=== PATIENT | male | born 1980 | race African-American/Black ===

== ENCOUNTER 2018-10-25 20:03 | Emergency (ER) | payer OTHER ==
[~2018-10-25] VITALS: Ht 170.2 cm; Wt 95.3 kg
[2018-10-25] MEDS ORDERED: PREDNISONE 10 M10 MG PO (20:53)
[2018-10-25] MEDS ORDERED: PROTONIX40 M1 PO (20:53)
[2018-10-25] MEDS ORDERED: VENTOLIN HFA 1818 GM INH ×2 (20:54→21:10)
[2018-10-25] MEDS ORDERED: BREO ELLIPTA 21 EACH INH (20:54)
[2018-10-25] MEDS ORDERED: ALBUTEROL2.5 MG/31 INH (21:10)
[2018-10-25] MEDS ORDERED: NEBULIZER MISCELL (21:10)
[2018-10-25] MEDS ORDERED: MEDROLDOSEPACK PO (21:10)
[2018-10-25] MEDS ORDERED: DOXYCYCLINE 10100 MG PO (21:40)
[2018-10-25] MEDS ORDERED: PROMETH-CODEIN 65 ML PO (22:19)
[2018-10-25 22:26] VITALS: BP 150/89
== END 2018-10-25 22:20 | disposition home or self-care (01) ==
LOC: ER 20:03
DX: J18.9 Pneumonia, unspecified organism (principal); D86.9 Sarcoidosis, unspecified; Z88.8 Allergy status to other drugs, medicaments and biological substances

== ENCOUNTER 2018-12-24 14:55 | Inpatient (IN) | payer OTHER ==
[~2018-12-24] VITALS: Ht 170.2 cm; Wt 102.1 kg
--- NOTE | ~2018-12-24 | HC ---
[facility] [place] [address] CONSULTATION Name: KING YOUNG Room #: 449-I [facility] IN M.R.#: [id number] Admission: 12/24/18 ������������������ Attend Phys: Marylin Massey Discharge: 12/27/18 ������������������ Date of : 80 Report #: [id number] THIS REPORT FOR: //name// CC: FAM physician/PCP Marylin Massey DATE OF SERVICE: 12/25/2018 REFERRING PHYSICIAN: Marylin Massey MD. REASON FOR REFERRAL: Dyspnea. HISTORY OF PRESENT ILLNESS: The patient is a 38-year-old male who presents to the ED with progressive cough, weakness. A pulmonary consultation was requested. The patient was diagnosed with sarcoidosis in 01/2018. He has been seen at [facility]. Since then, he has been placed on steroids. He states that he was treated for pneumonia about two months ago. He was in his usual state of health until four days prior to presentation when he started to feel weak, increased cough productive of purulent sputum. Temperature on admission was 103.3 degrees Fahrenheit. PAST MEDICAL HISTORY: As mentioned above, sarcoidosis. According to the patient who had lung biopsy via bronchoscopy in 01/2018. He has been on prednisone since then. ALLERGIES: TO NAPROXEN, REACTIONS UNSPECIFIED. HOME MEDICATIONS: List reviewed in the MAR. FAMILY HISTORY: Noncontributory. SOCIAL HISTORY: He denies any tobacco use. He drinks socially. REVIEW OF SYSTEMS: As mentioned above, otherwise 10-point system review negative. PHYSICAL EXAMINATION: GENERAL: He is awake, alert, in mild distress. Appears moderately dyspneic. VITAL SIGNS: Temperature is 36.6 degrees Celsius, pulse is 100, respiratory rate is 20, blood pressure 130/73 mmHg, saturation 96% on supplemental O2. HEENT: Normocephalic, atraumatic. NECK: Supple, without lymphadenopathy or thyromegaly. CHEST: Breath sounds are moderate with mild bilateral crackles and wheezes. [facility] [address] [place] [address] CONSULTATION Name: KING YOUNG Room #: [address] [place] [address] IN ..#: [id number] Admission: 12/24/18 ������������������ Attend Phys: Marylin Massey Discharge: 12/27/18 ������������������ Date of : 80 Report #: [id number] CARDIOVASCULAR: Normal S1, S2. No murmurs or gallop. There is no JVD. There is no carotid bruit. Pulses are 2+/4+ bilaterally. ABDOMEN: Soft, nontender, no organomegaly or masses felt. GENITOURINARY: Deferred. RECTAL: Deferred. EXTREMITIES: No edema, cyanosis or clubbing. LABORATORY DATA: CT chest angiogram and chest x-ray reviewed showing bilateral patchy infiltrates along with mediastinal adenopathy. WBC 14,000, hemoglobin is 15.5. Electrolytes are unremarkable. MARY level was unremarkable. IMPRESSION: 1. Febrile illness, bilateral infiltrates, presumed pneumonia, though cannot rule out an exacerbation of sarcoidosis. 2. Sarcoidosis, pulmonary involvement, diagnosed in 01/2018. According to the patient, he has undergone bronchoscopy, biopsy at [facility]. He has been on prednisone since then. RECOMMENDATION: Agree with broad-spectrum antibiotics. We will also start to increase corticosteroids for his presumed exacerbation of sarcoidosis. DVT and GI prophylaxis recommended. Follow up cultures. Thank you for this consultation. ��������������������������������������������� ���������������������������������������� By: ��������������������������������������������� 1111 09 Boby Quintanilla MD /nt
[~2018-12-24 14:55] MED LIST: ALBUTEROL2.5 MG/31 INH; BREO ELLIPTA 21 EACH INH; DOXYCYCLINE 10100 MG PO; MEDROLDOSEPACK PO; NEBULIZER MISCELL; PREDNISONE 10 M10 MG PO; PROMETH-CODEIN 65 ML PO; PROTONIX40 M1 PO; VENTOLIN HFA 1818 GM INH
[2018-12-24 14:57] VITALS: BP 141/96
[2018-12-24 16:25] LABS: ABSOLUTE NEUTROPHILS 11.5 thou/uL (1.4-8.2); BASOPHILS 0.3 % (0.0-2.0); EOSINOPHILS 0.3 % (0.0-3.0); HEMATOCRIT 44.5 % (42.0-52.0); HEMOGLOBIN 15.5 gm/dL (14.0-18.0); LYMPHOCYTES 6.5 % (24.0-44.0); MCH 29.6 pg (26.0-34.0); MCHC 34.7 g/dL (28.0-37.0); MCV 85.3 fL (80.0-100.0); MONOCYTES 10.9 % (1.0-8.0); PLATELET COUNT 324 thou/uL (150-400); RBC 5.23 mil/uL (4.50-6.00); RDW 14.1 % (10.5-14.5)
[2018-12-24 17:04] LABS: ANION GAP 15 mmol/L (7-16); BUN 12 mg/dL (7-18); CALCIUM 10.2 mg/dL (8.5-10.1); CHLORIDE 95 mmol/L (98-107); CO2 23 mmol/L (21-32); CREATININE 1.1 mg/dL (0.7-1.3); GLUCOSE 114 mg/dL (74-106); SODIUM 133 mmol/L (136-145)
[2018-12-24 17:14] LABS: ALBUMIN 3.8 g/dL (3.4-5.0); SGOT 32 U/L (15-37); SGPT 37 U/L (30-65); TOTAL BILIRUBIN 1.7 mg/dL (<0.1-1.0); TOTAL PROTEIN 9.8 g/dL (6.4-8.2); TROPONIN-I <0.06 ng/mL (<0.06)
[2018-12-24 17:43] VITALS: BP 133/81
--- NOTE | 2018-12-24 17:45 | NUR ---
HOSPITALIST AT BEDSIDE
[2018-12-24 17:57] VITALS: BP 142/80
[2018-12-24 20:45] VITALS: BP 135/72
--- NOTE | 2018-12-25 06:34 | NUR ---
Received pt from ED at 2245. Pt resting in bed. AOX4. VSS temperate 98.3 now. Still having non productive cough. Cough causing pain gave hydrocodone onetime. IV Right forearm with NS @100. Pt is on droplet precaution. Flu swabs negative. Skin intact. Called in consults. No identified needs at the moment. Will continue to monitor.
[2018-12-25 08:00] VITALS: BP 145/76
--- NOTE | 2018-12-25 08:55 | EKG ---
[address] [facility] [place] [address] ELECTROCARDIOGRAM REPORT Name: KING YOUNG Room #: 464-P ADM IN M.R.#: [id number] ������������������ Admission: 12/24/18 ������������������ Attend Phys: Marylin Massey Discharge: ������������������ Date of : 80 Report #: [id number] ����������������������������������������������������������������� [id number] THIS REPORT FOR: //name// [facility] ED Test Date: 2018-12-24 Test Time: 15:32:05 Pat Name: KING HECTOR Department: Room: 464 Gender: M Professional Builder: WAYLON : 1980 Requested By: Bryn Oliver Order Number: [id number] MD: Frederick York Measurements Intervals Termo Rate: 131 P: 50 NC: 175 QRS: 60 QRSD: 76 T: 12 QT: 274 QTc: 405 Interpretive Statements Sinus tachycardia Poor R wave progression Baseline wander in lead(s) V2 No previous ECG available for comparison Electronically Signed On 12-25-2018 8:55:40 CDT by Frederick York [email or web address] ��������������������������������������������� <ELECTRONICALLY SIGNED> ���������������������������������������� By: Frederick York MD, [facility] ��������������������������������������������� 12/25/18 0855 1532 31 Frederick York MD, FACC /EPI
[2018-12-25 15:00] VITALS: BP 130/73
[2018-12-25 16:53] LABS: URINE BILIRUBIN NEGATIVE (Negative); URINE BLOOD NEGATIVE (Negative); URINE CLARITY CLEAR; URINE COLOR YELLOW; URINE GLUCOSE-RANDOM* TRACE (Negative); URINE KETONES NEGATIVE (Negative); URINE LEUKOCYTES-REFLEX NEGATIVE (Negative); URINE NITRITE-REFLEX NEGATIVE (Negative); URINE PROTEIN (DIPSTICK) 1+ (Negative)
[2018-12-25 17:06] LABS: BACTERIA-REFLEX None Seen /HPF (None Seen); CASTS None Seen /LPF (None Seen); CELLULAR CASTS 0-3 Few /LPF (None Seen); CRYSTALS None Seen /LPF (None Seen); SQUAMOUS 0-3 Few /LPF (0-3); URINE RBC None Seen /HPF (0-2); URINE WBC-REFLEX 0-5 Rare /HPF (0-5)
--- NOTE | 2018-12-25 17:06 | NUR ---
PT ADMITTED RELATED TO CAP, SARCOID. CM REVIEWEDCHART AND SPOKE WITH CARE TEA. CM MET WITH PT AT BEDSIDE THIS DAY. PT IS A&O X4. CM ROLE INTRODUCED. PT INDICATED HE LIVES IN A HOUSE WITH SPOUSE 5 STEPS TO ENTER AND 5 STEPS INSIDE. HE HAD BEEN INDEPENDENT WITH GAIT AND ADLS ED TRANSPORTER NO DME. PLANS TO RETURN HOME PNCE STABLE. CM TO FOLLOW.
--- NOTE | 2018-12-25 19:05 | NUR ---
PT STABLE THROUGHOUT SHIFT. PT HAD C/O PAIN WHICH WERE ADDRESSED WITH MEDS. PT ALSO C/O COUGH, ALSO TREATED WITH MEDICATION. PT WAS TRANSFERRED TO [facility] FOR NEGATIVE AIR PRESSURE AND PLACED IN AIRBORNE PRECAUTION ISO. PT RESTING COMFORTABLY.
--- NOTE | 2018-12-25 19:23 | NUR ---
PT TB SKIN TEST PERFORMED- LEFT FOREARM, CIRCLED IN BLACK MARKER.
[2018-12-25 19:24] VITALS: BP 141/68
[2018-12-26 00:05] LABS: IgA 165 mg/dL (90-386); IgG 1579 mg/dL (700-1600); IgM 185 mg/dL (20-172)
--- NOTE | 2018-12-26 03:11 | NUR ---
ASSUMED CARE AROUND 1899. AXOX4. AIRBORNE ISO FOR POSS TB. NEW IV IN LFA PER PT REQUEST. NO S/S ACUTE DISTRESS NOTED OR REPORTED AT THIS TIME. WILL CONT TO MONITOR FOR ANY CHANGES IN CONDITION.
[2018-12-26 04:25] VITALS: BP 146/71
[2018-12-26 05:52] LABS: HEMATOCRIT 38.9 % (42.0-52.0); MCH 29.5 pg (26.0-34.0); MCHC 33.5 g/dL (28.0-37.0); MCV 88.1 fL (80.0-100.0); RBC 4.41 mil/uL (4.50-6.00); RDW 14.4 % (10.5-14.5)
[2018-12-26 06:00] LABS: CALCIUM 9.1 mg/dL (8.5-10.1); POTASSIUM 4.5 mmol/L (3.5-5.1)
[2018-12-26 07:13] LABS: HIV ANTIBODY Non Reactive (Non Reactive)
[2018-12-26 09:00] VITALS: BP 143/68
--- NOTE | 2018-12-26 10:48 | NUR ---
per message from benson with [employer], pt out of net work with no out of net work benefits. if needs to remain in hospital needs to be transferred to in net work hospital ( , [place], [facility], [facility] , [facility] and [facility]). [employer] will pay for transport but there will still be out of cost that pt will be responsible. information passed on to cm team and .
[2018-12-26 14:09] VITALS: BP 134/68
--- NOTE | 2018-12-26 16:08 | NUR ---
CM WAS NOTIFIED THAT PT'S INSURANCE IS OUT OF NETWORK AND IF HE'S GOING TO REMAIN HOSPITALIZED HE NEEDS TO BE TRANSFERED TO AN [facility] IN NETWORK FACILITY. CM NOTIFIED PHYSICIAN AND HE INDICATED THAT HE PLANS FOR PT TO DC HOME TOMORROW OF HE INDICATED HE CAN STAY. CM NOTIFIED UR NURSE AND CM DOT ETCHER. CM TO FOLLOW INDICATED WITH DC PLANNING.
--- NOTE | 2018-12-26 17:40 | HC ---
[facility] [place] [address] CONSULTATION Name: KING YOUNG Room #: 449-I ADM IN M.R.#: [id number] Admission: 12/24/18 ������������������ Attend Phys: Marylin Massey Discharge: ������������������ Date of : 80 Report #: [id number] THIS REPORT FOR: //name// CC: [place] physician/PCP Marylin Massey DATE OF SERVICE: 12/25/2018 REASON FOR CONSULTATION: I was asked to evaluate concerning bilateral pulmonary infiltrates and fever. HISTORY OF PRESENT ILLNESS: The patient is a 38-year-old diagnosed last year with pulmonary sarcoidosis. This was at [facility]. He had a pneumothorax identified and mediastinal adenopathy along with pulmonary infiltrate. He underwent bronchoscopy with transbronchial biopsy, confirming the diagnosis. The patient was treated with prednisone, initially 60 mg a day and tapered this over approximately 6 months' time course. He has been off prednisone since then. His respiratory status improved significantly and was back to work where he works for the [employer] on [employer]. He is very active and does heavy lifting. Over the last several months, he has had poor exercise capacity. Gets short of breath when he walks upstairs. He has difficulty maintaining exertional work. Two months ago, was seen in the Emergency Room at [facility] for fever, cough and pleuritic chest pain. He was treated with prednisone and doxycycline. Chest x-ray showed bilateral infiltrates. No organisms identified. His fever resolved after this, but he continued to have dyspnea. He completed a short course of prednisone. He also completed his doxycycline. He has not followed up with a acid maker at [facility]. Five days ago, he developed acute onset of fever, chills, cough, shortness of breath. He stayed home from work for the past 5 days. Fever got up to over 103 and he presented to the Emergency Room for further evaluation. He has had intermittent pleuritic pain to his right chest. He has had yellow to brown sputum production without hemoptysis. Intermittent headaches. Intermittent loose stool. No rashes or adenopathy noted. No weight loss. He has had intermittent chills and sweats. Denies any visual changes. No oral lesions. No cardiac complaints. No PND or orthopnea. Most of his dyspnea is with activity. Denies any peripheral edema. No nausea, vomiting, abdominal pain, dysuria or frequency. No seizures or unilateral weakness. No psychiatric complaints. No bleeding issues. REVIEW OF SYSTEMS: Ten-point review as noted above with no additions. ALLERGIES: NAPROSYN. MEDICATIONS: As noted on his OCT, now on Levaquin. PAST MEDICAL HISTORY: Unremarkable other than sarcoidosis diagnosis. He does [address] [address] CONSULTATION Name: KING YOUNG Room #: 449-I [facility] IN M.R.#: [id number] Admission: 12/24/18 ������������������ Attend Phys: Marylin Massey Discharge: ������������������ Date of : 80 Report #: [id number] use occasional albuterol inhaler. FAMILY HISTORY: Noncontributory. SOCIAL HISTORY: Nonsmoker, minimal alcohol intake. Lives with his family including his , 2 children and parents. No travel outside the [place]. Pet dog. No tuberculosis exposure. No HIV risk factors. PHYSICAL EXAMINATION: VITAL SIGNS: Temperature max is 102.8, currently afebrile; pulse is 102; blood pressure 145/76. GENERAL: He was diaphoretic. He was alert and cooperative. He was in no acute distress. Moderately obese. SKIN: Without rash. Several tattoos. No palpable adenopathy. HEENT: Eyes without scleral icterus or conjunctivitis. Mouth without mucositis. NECK: Supple. LUNGS: Scattered crackles posteriorly with no consolidation or rub. HEART: Regular, tachycardic. No murmur, gallop or rub. ABDOMEN: Soft, nontender, no hepatosplenomegaly or mass. GENITORECTAL: Not performed. EXTREMITIES: Without clubbing, cyanosis or edema. Cranial nerves intact. Strength in upper and lower extremities normal. Sensation upper and lower extremities to touch normal. MOOD: Normal. LABORATORY STUDIES: Chest x-ray, bilateral infiltrates. CT scan of the chest, bilateral masses and adenopathy. CT of the abdomen, retroperitoneal adenopathy. Urine antigens pending. Blood culture pending. Sputum for AFB pending. Sodium 133, potassium 4, bicarbonate 23, creatinine 1.1. Liver function test normal. Hemoglobin 15.5; white count 14 with 82% segs; 6% lymphs; platelet count 324,000. CRP 290. IMPRESSION: A 38-year-old with underlying history of sarcoidosis with progressive disease, having completed his course of prednisone, now with acute febrile illness and bilateral infiltrates. Difficult to say how much of this is sarcoidosis versus how much is an opportunistic infection versus community-acquired pneumonia. It sounds like over the last several months, he has had progressive decline; however, the fevers are new. RECOMMENDATION: We will continue Levaquin. Place the patient in airborne precautions while further workup is underway. Obtain serologic studies, more culture specimens and we will have Pulmonary Medicine see for bronchoscopy. The patient has been restarted on low dose prednisone. This may need to be [address] [address] CONSULTATION Name: KING YOUNG Room #: 449-I ADM IN M.R.#: [id number] Admission: 12/24/18 ������������������ Attend Phys: Marylin Massey Discharge: ������������������ Date of : 80 Report #: [id number] increased once we get all of our samples back. We will also check immunoglobulins, HIV study and sedimentation rate. ��������������������������������������������� <ELECTRONICALLY SIGNED> ���������������������������������������� By: Bryn Noel MD ��������������������������������������������� 12/26/18 1740 [id number] [id number] Bryn Noel MD /nt
--- NOTE | 2018-12-26 17:50 | NUR ---
AAOX4 VERY PLEASANT AND COOPERTIVE. TAKES HYDRODOCONE AND GUIFENESIN FOR PAIN AND COUGH. GOOD APPETITE. IV LEFT HAND. VOIDS WITHOUT DIFFICULTY. UP IN ROOM WITH SLOW STEADY GAIT. REMAINS ON ROOM AIR - NON PRODUCTIVE COUGH. FAMILY AT BEDSIDE FOR MOST OF SHIFT.
[2018-12-26 19:15] VITALS: BP 132/75
--- NOTE | 2018-12-26 19:31 | NUR ---
ARRIVED ON FROM ED. OREINTED TO NAME ONLY. REVIEWED CALL LIGHT USE. BED ALARM ON. SALINE LOCK RIGHT FOREARM. ON O2 AT 4L NASAL CANULA.
--- NOTE | 2018-12-27 04:32 | NUR ---
Pt. rested quietly at intervals during the night when checked on during frequent rounds. Cough med given for his cough (see emar) with relief. Pt. also c/o generalized pain and po pain med given (see emar) with some relief noted. Up ad kia in his room and no c/o increased shortness of air.
[2018-12-27 04:48] VITALS: BP 135/80
[2018-12-27 07:18] VITALS: BP 140/77
--- NOTE | 2018-12-27 15:32 | NUR ---
TB SKIN TEST IS NEGATIVE.
--- NOTE | 2018-12-27 16:07 | NUR ---
DISHCARGED TO HOME PER AMA. RECOMENDED TRANSFER TO [facility] AND PATIENT PLANS TO GO HOME TODAY AND WILL GO TO [facility] TOMORROW. SALINE LOCKS DISCONTINUED. REMAINS ON ROOM AIR AND NO DISRESS. VERY PLEASANT AND COOPERATIVE. FEELS THAT ASSEMBLY LINE DRIVER SAID HE COULD BE DISHCARGED WELL INFECTIOUS DISEASE PHYSISIAN. HOSPITALIST WOULD LIKE PATIENT TO TRANSFER.
[2018-12-27 16:08] LABS: HISTOPLASMA MYCELIAL-ID Negative (Negative)
--- NOTE | 2018-12-27 16:11 | NUR ---
HOSPITALIST INDICATED TO TRANSFER PT PULM HERE DIDN'T WANT TO DO BRONCHOSCOPY AND INDICATED TO TRANSFER PT. CM WENT TO SPEAK TO PT ABOUT TRANSFER AND HE INDICATED THAT PHYSICIANS HAD TOLD HIM HE COULD DISCHARGE AND FOLLOW UP OUTPATIENT. CM CHECKED WITH NURSE AND SHE STATED THAT DOTTY AND FARSHAD INDICATED HE COULD DISCHARGE. HOSPITALIST INDICATED THAT THAT WASN'T THE CASE AND TO PROCEDE WITH TRANSFER PT. CM WENT BACK IN AND NOTIFIED PT THEY SAID TO PROCEDED WITH TRANSFER AND HE STATED HE WOULD LEAVE AMA IF THEY TRIED TO TRANSFER HIM. NURSE INDICATED PT IS LEAVING AMA.
[2018-12-27 22:06] LABS: HISTOPLASMA MYCELIAL-CF Negative (Neg:<1:2)
[2018-12-28 17:07] LABS: ADENOVIRUS Negative (Negative); INFLUENZA A Negative (Negative); INFLUENZA B Negative (Negative); METAPNEUMOVIRUS Negative (Negative); PARAINFLUENZA 1 Negative (Negative); PARAINFLUENZA 2 Negative (Negative); PARAINFLUENZA 3 Negative (Negative); RHINOVIRUS Negative (Negative); RSV A Negative (Negative); RSV B Negative (Negative)
== END 2018-12-27 17:35 | disposition left against medical advice (07) | DRG 195 ==
LOC: ER 14:55 → EROBS 17:34 → 4W 17:34
PROVIDERS: Emergency Medicine; Internal Medicine Pulmonary Disease; Specialist; ADMIT Hospitalist
DX: J18.8 Other pneumonia, unspecified organism (principal); E80.6 Other disorders of bilirubin metabolism; D86.9 Sarcoidosis, unspecified; D86.0 Sarcoidosis of lung; Z53.21 Procedure and treatment not carried out due to patient leaving prior to being seen by health care provider; Z88.8 Allergy status to other drugs, medicaments and biological substances
CPT/HCPCS: 10040; 10045